=== PATIENT | male | born 1935 | race Caucasian/White ===

== ENCOUNTER 2016-12-08 11:13 | Emergency (ER) | payer MEDICARE, BC ==
[~2016-12-08] VITALS: Ht 177.8 cm; Wt 93.2 kg
[~2016-12-08 11:13] MED LIST: ADVIL 200MG TA200 MG PO; ALLOPURINOL100 MG PO; ASPIR-LOW81 MG PO; ATENOLOL50 MG PO; CALCIUM CARBONATE PO; LEVBID0.375 MG PO; MULTIPLE VITAMI1 TAB PO; MVI PO; NAPROSYN375 MG PO; NORVASC10 MG PO; PERCOCET 325 MG1 TA2 PO; PRILOSEC 20MG20 MG PO
[2016-12-08 11:15] VITALS: TEMP 98
[2016-12-08] MEDS ORDERED: NORVASC 10MG10 MG PO (11:45)
[2016-12-08] MEDS ORDERED: ZYLOPRIM 100MG100 MG PO (11:45)
[2016-12-08] MEDS ORDERED: ASPIRIN 81M81 MG/TA2 PO (11:46)
[2016-12-08] MEDS ORDERED: TENORMIN 5050 MG/TAB PO (11:46)
[2016-12-08] MEDS ORDERED: PRILOSEC 20MG20 MG PO (11:47)
[2016-12-08] MEDS ORDERED: INDOCIN 25MG CA25 MG PO (11:47)
[2016-12-08] MEDS ORDERED: COZAAR100 MG PO (11:47)
[2016-12-08] MEDS ORDERED: MULTIPLE VITAMI1 CAP PO (11:47)
[2016-12-08 11:54] LABS: ADJUSTED CALCIUM 8.9 mg/dL (8.4-10.2); ALBUMIN 4.5 gm/dL (3.5-5.0); BILIRUBIN,TOTAL 1.5 mg/dL (0.0-1.0); CALCIUM 9.3 mg/dL (8.4-10.2); CREATININE, serum 1.06 mg/dL (0.66-1.25); POTASSIUM 4.1 mmol/L (3.4-5.0); TOTAL PROTEIN 7.7 gm/dL (6.4-8.2)
[2016-12-08 12:02] LABS: BASO % 0.3 % (0.0-2.0); EOS # 0.2 (0.0-0.7); GRAN # 7.4 (1.4-6.5); GRAN % 68.8 % (42.2-75.2); HEMOGLOBIN 16.1 g/dl (13.5-18.0); LYMPH % 18.8 % (20.0-51.0); MEAN CELL VOLUME 91 fl (80.0-100.0); MEAN CORPUSCULAR HEMOGLOBIN 31 pg (27.0-31.0); MEAN CORPUSCULAR HGB CONC 34 g/dl (33.0-37.0); MEAN PLATELET VOLUME 9.6 fl (7.4-10.4); MONO # 1.1 (0.1-0.6); MONO % 9.7 % (1.7-9.3); PLATELET COUNT 230 K/mm3 (130-400); RED BLOOD COUNT 5.19 M/mm3 (4.20-5.60); REDCELL DISTRIBUTION WIDTH-CV 13.2 % (11.5-14.5); WHITE BLOOD COUNT 10.8 K/mm3 (4.8-10.8)
[2016-12-08 12:42] LABS: PH 7 (5-8); SQUAMOUS EPITHELIAL None Seen /hpf; URINE APPEARANCE Clear; URINE BACTERIA None Seen /hpf; URINE BILIRUBIN Negative (NEGATIVE); URINE BLOOD Negative (NEGATIVE); URINE COLOR Yellow; URINE GLUCOSE Negative (NEGATIVE); URINE KETONE Negative (NEGATIVE); URINE RBC 0-2 /hpf; URINE UROBILINOGEN Negative (NEGATIVE); URINE WBC 0-2 /hpf
[2016-12-08] MEDS ORDERED: FLAGYL500 MG PO (13:25)
[2016-12-08] MEDS ORDERED: LEVAQUIN 5500 MG/TA1 PO (13:25)
[2016-12-08] MEDS ORDERED: LEVAQUIN 750MG750 M1 PO (13:27)
[2016-12-08 13:33] VITALS: BP 145/89; PULSE 64
== END 2016-12-08 13:35 | disposition home or self-care (01) ==
LOC: COL.ER 11:13
PROVIDERS: Emergency Medicine
DX: K57.92 Diverticulitis of intestine, part unspecified, without perforation or abscess without bleeding (principal); I10 Essential (primary) hypertension; Z90.49 Acquired absence of other specified parts of digestive tract
CPT/HCPCS: J1885; J2405; J7030; Q9967

== ENCOUNTER 2021-11-12 13:18 | Emergency (ER) | payer MEDICARE, BC ==
[~2021-11-12] VITALS: Ht 177.8 cm; Wt 96.4 kg
[~2021-11-12 13:18] MED LIST changes: +ASPIRIN 81M81 MG/TA2 PO; +COZAAR100 MG PO; +FLAGYL500 MG PO; +INDOCIN 25MG CA25 MG PO; +LEVAQUIN 5500 MG/TA1 PO; +LEVAQUIN 750MG750 M1 PO; +MULTIPLE VITAMI1 CAP PO; +NORVASC 10MG10 MG PO; +TENORMIN 5050 MG/TAB PO; +ZYLOPRIM 100MG100 MG PO
[2021-11-12 13:34] VITALS: TEMP 98.2
[2021-11-12 14:13] LABS: BASO # 0.1 K/mm3 (0.0-0.2); BASO % 0.3 % (0.0-2.0); EOS # 0.2 K/mm3 (0.0-0.7); EOS % 0.9 % (0.0-4.0); GRAN # 15.4 K/mm3 (1.4-6.5); HEMATOCRIT 44.6 % (42.0-52.0); HEMOGLOBIN 15.4 g/dl (13.5-18.0); LYMPH # 1.4 K/mm3 (1.2-3.4); LYMPH % 7.4 % (20.0-51.0); MEAN CELL VOLUME 91 fl (80.0-100.0); MEAN CORPUSCULAR HEMOGLOBIN 32 pg (27-31); MEAN CORPUSCULAR HGB CONC 35 g/dl (33.0-37.0); MEAN PLATELET VOLUME 9.6 fl (7.4-10.4); MONO # 1.5 K/mm3 (0.1-0.6); MONO % 7.8 % (1.7-9.3); PLATELET COUNT 217 K/mm3 (130-400); RED BLOOD COUNT 4.89 M/mm3 (4.20-5.60); REDCELL DISTRIBUTION WIDTH-CV 13.1 % (11.5-14.5)
[2021-11-12 14:32] LABS: ALBUMIN 3.5 gm/dL (3.4-4.8); BILIRUBIN,TOTAL 1.3 mg/dL (0.2-1.2); CALCIUM 8.9 mg/dL (8.4-10.2); CREATININE, serum 1.33 mg/dL (0.72-1.25); POTASSIUM 4.4 mmol/L (3.5-4.5)
[2021-11-12 15:12] LABS: COLLECTION METHOD CLEAN CATCH
[2021-11-12 15:18] LABS: PH 5 (5-8); SQUAMOUS EPITHELIAL 0-2 /hpf (0-10); URINE APPEARANCE Clear (CLEAR/HAZY); URINE BACTERIA None Seen /hpf (NONE SEEN); URINE BILIRUBIN Negative (NEGATIVE); URINE BLOOD 1+ (NEGATIVE); URINE COLOR Yellow (YELLOW); URINE GLUCOSE Negative (NEGATIVE); URINE KETONE Negative (NEGATIVE); URINE LEUKOCYTE ESTERASE Negative (NEGATIVE); URINE NITRATE Negative (NEGATIVE); URINE PROTEIN(semi-quant) Negative (NEGATIVE); URINE RBC 0-2 /hpf (0-2)
[2021-11-12 17:16] VITALS: BP 138/72; PULSE 60
== END 2021-11-12 17:16 | disposition home or self-care (01) ==
LOC: COL.ER 13:18
PROVIDERS: Physician Assistant
DX: B34.9 Viral infection, unspecified (principal); E86.0 Dehydration; D72.829 Elevated white blood cell count, unspecified; R53.81 Other malaise; Z20.822 Contact with and (suspected) exposure to COVID-19